=== PATIENT | male | born 1995 | race African-American/Black ===

== ENCOUNTER 2025-06-24 06:31 | Emergency (ER) | payer SELFPAY ==
--- OUTSIDE RECORDS SUMMARY | 2016-11-24 10:54 | XMS_ITS | Continuity of Care Document ---
Author Organization [facility] Address [address] [place] [address] Phone Care Team Providers Care Pet Groomer Name Role Phone Hemanth Paul Unavailable Unavailable Procedures Procedure Date TDAP VACCINE >7 IM Advance Directives Directive Yes / No Effective Date File Name No Information Encounters Encounter Description Practice Location Reason(s) For Visit Diagnoses Date Provider Providers Copied on Encounter [facility], [address], [place], [id number], tel:[phone] [facility] No Information Beverly Saxena. [address], [place], [id number], [place]. tel:[phone] [facility], [address] [place] [address], [id number], [place] tel:[phone] Juan M Carter No Information Visci DO Alan. [address], [place], [id number], [place]. tel:[phone] Family History Family Member Type Diagnosis Age At Onset No Information Payers Payer name Insurance type Covered republican ID Authoriza tion(s) No Information Social History Type Description Quantity Date Captured Comments Sex Male Smoking Status No Information Chief Complaint And Reason For Visit No Information Reason For Referral Reason For Referral No Information History Of Present Illness Encounter Date Complaint History Of Prese nt Illness No Information Functional Status Date Functional Assessmen t No Information Instructions Date Instruction Additional Infor mation No Information Assessments Type Assessment Date No Information Patient Care Teams Name Effective Dates (start - stop) Status Members No Information
[2025-06-24 06:40] VITALS: BP 125/78; PULSE 57; TEMP 37.2; O2SAT 99; BMI 37.7
[2025-06-24] MEDS: PREDNISONE 20 MG TABLET 40 MG PO (07:32)
--- NOTE | 2025-06-24 07:41 | ED_ITS ---
HPI HPI - General Adult General Chief complaint: Extremity Injury, Upper Stated complaint: R NECK & SHOULDER PAIN, DENTAL PAIN, HEADACHE Time Seen by Provider: 06/24/25 07:02 Source: patient Mode of arrival: walk-in History of Present Illness HPI narrative: Patient is a 29-year-old male with no prior medical history presenting to the emergency department for evaluation of right-sided neck and arm pain. Patient states that his symptoms have been ongoing for the last 2 weeks. He denies any injuries to the area, though he does lift extremity heavily equipment at work every day. He states the pain is located in the right side of his neck and radiates down his right shoulder. He has been taking NSAIDs and Tylenol without much relief. He states the pain is intermittent throughout the day, worse at night. He denies any weakness or numbness/tingling in the extremity. He denies involvement of the left arm. He denies any other symptoms such as chest pain, shortness of breath, fevers, chills, abdominal pain, nausea, or vomiting. No history of IVDU. Related Data Previous Rx's ?Medication ?Instructions ?Recorded prednisone 20 mg tablet 40 mg (2 x 20 mg) PO DAILY 4 days 06/24/25 #8 tabs Allergies Allergy/AdvReac Type Severity Reaction Status Date / Time No Known Drug Allergies Allergy Verified 06/24/25 06:39 Review of Systems ROS Status of ROS 10 or more systems reviewed and unremark able except as noted in history and below [facility] Social History Little interest or pleasure in doing things: not at all Feeling down, depressed, or hopeless: not at all Exam Narrative Exam Narrative: CONSTITUTIONAL: Appears to be in pain, nontoxic, answering questions and following commands appropriately SKIN: Was warm and dry, no rashes. EYES: Sclerae white. EARS, NOSE, THROAT: Moist oral mucosa. RESPIRATORY: Nonlabored respirations. CARDIOVASCULAR: Normal rate and regular rhythm. 2+ radial pulses bilaterally. GASTROINTESTINAL: Abdomen is nondistended. MUSCULOSKELETAL: There is reproducible tenderness to palpation throughout the paraspinal muscles on the right side of the neck. No peripheral edema. Good muscle tone and bulk in bilateral upper extremities. Full range of motion of the bilateral upper extremities. Full range of motion in the neck without midline C-spine tenderness. Positive Spurling test on the right. NEUROLOGIC: Patient is awake and alert. 5/5 strength in the bilateral upper extremities with elbow flexion/extension, thoughout the fingers, wrist flexion/extension, and shoulder abduction/abduction. Sensation intact to light touch at the bilateral upper extremities. Constitutional Vital Signs, click to edit/add: Last Vital Signs Temp 98.9 F 06/24/25 06:40 Pulse 57 L 06/24/25 06:40 Resp 20 06/24/25 06:40 BP 125/78 06/24/25 06:40 Pulse Ox 99 06/24/25 06:40 O2 Del Method Room Air 06/24/25 06:40 Course Vital Signs Vital signs: Vital Signs Temperature 98.9 F 06/24/25 06:40 Pulse Rate 57 L 06/24/25 06:40 Respiratory Rate 20 06/24/25 06:40 Blood Pressure 125/78 06/24/25 06:40 Pulse Oximetry 99 06/24/25 06:40 Oxygen Delivery Method Room Air 06/24/25 06:40 Temperature 98.9 F 06/24/25 06:40 Pulse Rate 57 L 06/24/25 06:40 Respiratory Rate 20 06/24/25 06:40 Blood Pressure 125/78 06/24/25 06:40 Pulse Oximetry 99 06/24/25 06:40 Oxygen Delivery Method Room Air 06/24/25 06:40 Medical Decision Making MDM Narrative Medical decision making narrative: Patient is a healthy 29-year-old male presenting to the emergency department for 2-week history of atraumatic right sided neck pain radiating down his right arm. His vital signs are within normal limits. He is afebrile and hemodynamically stable. The right upper extremity is neurovascularly intact with a positive Spurling test. My clinical impression is that the patient's symptoms are secondary to cervical radiculopathy, possibly musculoskeletal strain. His occupation puts him at risk for these etiologies as he lifts heavy equipment daily. He has no neurologic deficits or evidence of myelopathy suggest severe spinal cord involvement. There is no midline C-spine tenderness, trauma, history of IV drug use/diabetes to suggest traumatic injuries or spinal epidural abscess. I do not believe x- ray or CT would be beneficial in this case - he would likely benefit from outpatient MRI should his symptoms persist. I do believe the patient is stable for discharge. Patient is already taking NSAIDs, therefore he was given a 40 mg dose of prednisone here in the ED and a prescription for prednisone 40 mg daily x 4 days. They were instructed to follow up with a primary care physician for further care. Return precautions were given including any new or worsening symptoms, including weakness or numbness in the extremity. Patient understands and agrees to the plan. FINAL IMPRESSION: #Acute right-sided cervical radiculopathy DISPOSITION: Discharged home CONDITION: Good Discharge Plan Discharge Chief Complaint: Extremity Injury, Upper Clinical Impression: Cervical radiculopathy Patient Disposition: Home, Self-Care Time of Disposition Decision: 07:29 Condition: Good Mode of Transportation: Private Vehicle Prescriptions / Home Meds: New prednisone 20 mg tablet 40 mg PO DAILY 4 Days Qty: 8 0RF Print Language: Kiswahili Instructions: Cervical Radiculopathy (ED)
== END 2025-06-24 08:00 | disposition home or self-care (01) ==
LOC: ER 07:36
PROVIDERS: Emergency Provider Student in an Organized Health Care Education/Training Program; PCP Nurse Practitioner Family
DX: M54.12 Radiculopathy, cervical region (principal)
CPT/HCPCS: 99283; J7512